=== PATIENT | male | born 1955 | race Caucasian/White ===

== ENCOUNTER 2018-07-22 10:21 | Outpatient (CLI) | payer OTHER ==
--- NOTE | 2018-07-22 12:57 | RAD ---
BARIUM SWALLOW ESOPHAGRAM: HISTORY: Dysphagia. R13.10, dysphagia unspecified type. COMPARISON: None. FINDINGS: The head of advertising radiograph of the chest was normal. The patient was initially given gas-forming crystals. Next, liquid barium was given. Primary and secondary peristalsis was normal. No extrinsic mass effect or strictures. Mucosa is nor mal without irregularity. Next, the patient was given a tablet that passed with ease. Next, the patient was put in the VERONICA position. The patient was given thin liquid barium. Primary an d secondary peristalsis was again normal. No extrinsic mass effect or strictures. No mucosal irregu larity. IMPRESSION: Normal upper GI examination. No hernia, significant reflux, or evidence of esophageal dysmotility. FLUORO TIME: 0.7 minutes. Dose 6.909 uGycm*^2. POS: [facility]
== END 2018-07-22 10:22 | disposition home or self-care (01) ==
LOC: RAD 10:21
PROVIDERS: ATTEND Family Medicine
DX: R13.10 Dysphagia, unspecified (principal)
CPT/HCPCS: 74220

== ENCOUNTER 2020-04-23 09:33 | Outpatient (CLI) | payer OTHER ==
--- NOTE | 2020-04-23 10:01 | RAD ---
XR Chest Pa Lat STANDARD HISTORY: Pneumonia of left lower lobe due to infectious organism. Patient still has a little cough COMPARISON: 04/15/2020 FINDINGS: The heart size is normal. The lungs are well expanded without focal areas of consolidation, pneumothorax or pleural effusions. IMPRESSION: No radiographic evidence of acute cardiopulmonary process.
== END 2020-04-23 09:34 | disposition home or self-care (01) ==
LOC: BICRAD 09:33
PROVIDERS: ATTEND Family Medicine
DX: J18.9 Pneumonia, unspecified organism (principal)
CPT/HCPCS: 36415; 71046; 80053; 85025